=== PATIENT | female | born 1995 | race African-American/Black ===

== ENCOUNTER 2017-09-05 10:12 | Emergency (ER) | payer OTHER ==
[~2017-09-05] VITALS: Ht 149.9 cm; Wt 104.4 kg
[~2017-09-05 10:12] MED LIST: NOHOMEMEDS
[2017-09-05 11:31] LABS: CHLORIDE 105 mEq/L (99-109); SODIUM 139 mEq/L (136-147)
[2017-09-05 11:33] LABS: GLUCOSE 104 mg/dL (70-99); HEMATOCRIT 36.5 % (36.0-46.0); MCH 22.8 PG (29.0-34.0); MCHC 30.7 G/DL (30.0-36.0); MCV 74.2 FL (83-99); MEAN PLAT.VOLUME 10.8 uM^3 (9.5-12.4); PLATELET COUNT 347 K/uL (156-360); RBC DIS.WIDTH-CV 17.1 % (11.8-14.6); RBC DIS.WIDTH-SD 45.3 % (39-53); RED BLOOD COUNT 4.92 M/uL (3.80-5.20); WHITE BLOOD COUNT 6.1 K/uL (4.1-10.2)
[2017-09-05 11:34] LABS: ANION GAP 8 MEQ/L (2-14)
[2017-09-05 11:37] LABS: GFR ESTIMATE (CALCULATED) > 59 mL/min/
[2017-09-05 11:38] LABS: UREA NITROGEN (BUN) 9 mg/dL (9-23)
[2017-09-05] MEDS ORDERED: NAPROSYN250 MG PO (11:41)
[2017-09-05 11:50] LABS: QUANTITATIVE HCG < 4.0 MIU/ML
[2017-09-05 12:09] VITALS: BP 146/85
== END 2017-09-05 12:12 | disposition home or self-care (01) ==
LOC: EME 10:12
PROVIDERS: Nurse Practitioner Family
DX: N64.4 Mastodynia (principal)
CPT/HCPCS: 71020; 80048; 84702; 85027; 99281; 99283